=== PATIENT | female | born 1960 | race African-American/Black ===

== ENCOUNTER 2016-08-13 10:50 | Outpatient (CLI) | payer OTHER ==
[2016-08-13 11:41] LABS: eGFR (African) > 60; eGFR (Non-African) > 60
== END 2016-08-13 11:00 ==
LOC: LAB 10:50
PROVIDERS: ATTEND Family Medicine
DX: E11.9 Type 2 diabetes mellitus without complications (principal)
CPT/HCPCS: 36415; 80053; 80061; 83036

== ENCOUNTER 2017-01-02 13:57 | Outpatient (CLI) | payer OTHER ==
[2017-01-02 14:45] LABS: eGFR (African) > 60; eGFR (Non-African) > 60
[2017-01-03 05:49] LABS: BASOPHILS % 0.5 (0.0-1.5); EOSINOPHILS % 3.3 % (0.0-6.8); MEAN CORPUSCULAR HEMOGLOBIN 30.7 pg (28.0-34.0); MEAN CORPUSCULAR VOLUME 92.5 fl (80.0-100.0); MONOCYTES % 2.6 % (0.0-11.0); NEUTROPHILS # 4.2 # k/uL (1.4-7.7)
== END 2017-01-02 14:00 ==
LOC: LAB 13:57
PROVIDERS: ATTEND Family Medicine
DX: E11.9 Type 2 diabetes mellitus without complications (principal); R53.82 Chronic fatigue, unspecified
CPT/HCPCS: 36415; 80053; 83036; 84443; 85025

== ENCOUNTER 2017-02-17 07:59 | Outpatient (CLI) | payer OTHER ==
--- NOTE | 2017-02-17 18:04 | Diagnostic Imaging Report ---
Name: KRISTIE MCKENZIE ~~ ~~ : 56 ~~ Acc #: [id number]~~ DOS: Feb 17, 2017 8:06:24 AM CDT ~~ Mod: MR ~~ Desc: MRI L SPINE W/O CONTRAST 2 of 2 KEVIN SRINIVASAN~ [address] [id number] ~ ~ ~ ~ Report Submission Date: Feb 17, 2017 2:53:36 PM CDT Patient ~ Study Name: KRISTIE MCKENZIE ~ Date: Feb 17, 2017 8:06:24 AM CDT ~ Modality Type: MR Gender: F ~ Description: MRI L SPINE W/O CONTRAST : 56 ~ Institution: [facility] Physician: KEVIN SRINIVASAN ~ ~ ~ ~ Magnetic resonance imaging of the lumbar spine without contrast History: Chronic low back pain for 10 years Findings: Routine sagittal and axial images of the lumbar spine are obtained without contrast. Priors have not been provided for comparison. Chronic degenerative endplate marrow signal abnormality is present at L4/L5. The conus medullaris terminates at the L1/L2 level. A fatty replaced L4 vertebral body hemangioma is noted. A 1.6 x 1.0 cm T1 and T2 hyperintense left lower pole renal lesion is observed. A small left upper pole renal cyst is present. L1/L2: Unremarkable intervertebral disc level. L2/L3: Mild diffuse disc bulging and posterior midline annular fissure without stenosis. L3/4: Mild to moderate diffuse disc bulging, posterior midline annular fissure, mild bilateral facet arthropathy, and spinal canal narrowing without stenosis. L4/L5: Moderate disc space narrowing, moderate to marked diffuse disc bulging, mild bilateral facet arthropathy, and spinal canal narrowing without stenosis. The left neural foramen is narrowed. L5/S1: Minimal disc bulging and moderate left facet arthropathy without spinal stenosis. Impression: 1. Mild multilevel lumbar spondylosis without disc extrusion, central canal stenosis, or critical foraminal stenosis. 2. Degenerative L4/L5 marrow change and L4 vertebral body hemangioma. 3. 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 Recommend noncontrast CT for confirmation. ~ Electronically signed on Feb 17, 2017 2:53:36 PM CDT by: Mike TYLER
== END 2017-02-17 08:10 | disposition home or self-care (01) ==
LOC: RAD 07:59
PROVIDERS: ATTEND Family Medicine
DX: M54.5 Low back pain (principal)
CPT/HCPCS: 72148

== ENCOUNTER 2017-09-04 13:41 | Outpatient (CLI) | payer OTHER ==
[2017-09-04 14:40] LABS: eGFR (African) > 60; eGFR (Non-African) > 60
== END 2017-09-04 13:42 ==
LOC: LAB 13:41
PROVIDERS: ATTEND Family Medicine
DX: E11.9 Type 2 diabetes mellitus without complications (principal)
CPT/HCPCS: 36415; 80053; 80061; 83036

== ENCOUNTER 2017-11-04 07:16 | Day surgery (SDC) | payer OTHER ==
--- NOTE | 2017-11-05 10:48 | GI Report ---
REFERRING PHYSICIAN: Dr. Pavan Dan CUFF FOLDER: Jose Guadalupe Adam MD PROCEDURE MEDICATION: Propofol as per anesthesia. INDICATIONS: This 57-year-old woman is referred for a screening colonoscopy. She had 1 done about 10 years ago. She denies any bleeding. Sometimes her stools are irregular. She is a diabetic. She is on lisinopril, metformin, Januvia, and is on atorvastatin for cholesterol. Unfortunately, she is a cigarette smoker. PROCEDURE PERFORMED: Colonoscopy. PROCEDURE: An Olympus video colonoscope was advanced to the rectum and slowly advanced to the cecum. The appendiceal orifice and terminal ileum were normal. On slow withdrawal, the cecum, ascending colon, and transverse colon with no obvious intraluminal lesions noted. The descending colon and sigmoid colon had some redundancy. No obvious intraluminal lesions were noted. Retroflexion of the rectum was normal. Patient tolerated the procedure well. FINDINGS: 1. Normal appearing mucosa. 2. A little bit of irregularity . RECOMMENDATIONS: 1. Increase fiber in the diet. 2. With her metabolic syndrome, hypertension, hyperlipidemia, diabetes, being a cigarette smoker is a significant for risk for her. Patient was advised to stop tobacco usage. 3. Consider re-looking at her colon in 10 years. cc: Dr. Pavan TYLER
== END 2017-11-04 07:17 ==
LOC: OPSURG 07:16
PROVIDERS: ATTEND Internal Medicine Gastroenterology
DX: Z12.11 Encounter for screening for malignant neoplasm of colon (principal); E11.9 Type 2 diabetes mellitus without complications; I10 Essential (primary) hypertension; E78.5 Hyperlipidemia, unspecified; F17.210 Nicotine dependence, cigarettes, uncomplicated
CPT/HCPCS: J2001; J2704; J7120; G0121; S1016

== ENCOUNTER 2018-01-08 13:54 | Outpatient (CLI) | payer OTHER ==
[2018-01-08 14:36] LABS: eGFR (African) > 60; eGFR (Non-African) > 60
== END 2018-01-08 13:55 ==
LOC: LAB 13:54
PROVIDERS: ATTEND Family Medicine
DX: E11.9 Type 2 diabetes mellitus without complications (principal)
CPT/HCPCS: 36415; 80053; 83036

== ENCOUNTER 2018-01-22 14:54 | Emergency (ER) | payer OTHER ==
--- NOTE | 2018-01-22 15:23 | ED Physician Documentation ---
Female Urogenital Problems - HISTORIAN Historian: patient - HPI Stated Complaint: Urinary Frequency Chief Complaint: Female Urogenital Problems Onset: days ago Severity: severe - Associated Symptoms Urinary Symptoms: blood in urine, frequent urination, burning w/ urination, urgency w/ urination, pain w/ urination - ROS CONST: chills. denies: recent illness, fever, sweating GI/: denies: nausea, vomiting, decreased appetite, diarrhea, black stools, bloody stools, other CVS/RESP: none EYES/ENT: none NEURO/PSYCH: none MS/SKIN/LYMPH: none - PAST HX Past History: none Other History: diabetes Type 2, hypertension, other (fibromyalgia, depression) Allergies/Adverse Reactions: Allergies Allergy/AdvReac Type Severity Reaction Status Date / Time Penicillins Allergy Unknown Unverified 01/30/16 15:24 No Known Drug Allergies Allergy Unverified 05/06/14 14:28 - SOCIAL HX Smoking History: non-smoker - FAMILY HX Family History: denies: none - VITAL SIGNS Vital Signs: Vital Signs Temp Pulse Resp BP Pulse Ox 97.8 F 72 18 137/89 01/22/18 14:54 01/22/18 14:54 01/22/18 14:54 01/22/18 14:54 - REVIEWED ASSESSMENTS Nursing Assessment Reviewed: Yes Vitals Reviewed: Yes Progress - Progress Progress: Ua completed Reviewed discharge instructions with patient; questions answered. Verbalized understanding. ED Results Lab/Radiology - Orders Orders: ED Orders Category Date Time Status UA W/MICRO IF INDICATED Stat Lab 01/22/18 15:15 Ordered Female Urogenital Problems - EXAM General Appearance: mild distress EENT: eye inspection normal Respiratory: no resp. distress, breath sounds nml CVS: reg rate & rhythm, heart sounds normal, equal pulses, no murmur, no gallop , PMI nml, no JVD, no friction rub, 24 Abdomen: soft, non-tender, no organomegaly, no distention, nml bowel sounds Back: No: CVA tenderness Extremities: non-tender, normal range of motion, no evidence of injury, no edema , J, TRANSITIONS MANAGER Neuro: oriented X3, CN's nml as tested, motor nml, sensation nml, mood/affect nml Discharge Clincal Impression: UTI (urinary tract infection) Qualifiers: Urinary tract infection type: acute cystitis Hematuria presence: with hematuria Qualified Code(s): N30.01 - Acute cystitis with hematuria Additional Instructions: supervisor show operations your prescription and start it today Drink at least 64 oz of water daily. Avoid caffeinated beverages Cranberry juice will help with symptoms. Tylenol every 4 hours as needed for pain/fever or ibuprofen every 6 hours as needed for pain and fever See your primary care provider for a repeat UA 48 hours after completing your antibiotic. Condition: Stable Disposition: 01 HOME, SELF-CARE Decision to Admit: NO Decision Time: 15:23
[2018-01-22 15:33] VITALS: BP 132/58
[2018-01-22 15:53] LABS: APPEARANCE,URINE CLOUDY (CLEAR); COLOR,URINE YELLOW (YELLOW); OCCULT BLOOD,URINE 3+ (NEGATIVE); UROBILINOGEN URINE 0.2 Eu (0.2-1.0)
== END 2018-01-22 15:30 | disposition home or self-care (01) ==
LOC: ED 14:54
DX: N30.01 Acute cystitis with hematuria (principal)
CPT/HCPCS: 81002; 87086; 87186

== ENCOUNTER 2019-03-30 10:03 | Outpatient (CLI) | payer OTHER ==
[2019-03-30 10:47] LABS: eGFR (Non-African) > 60
== END 2019-03-30 10:05 ==
LOC: LAB 10:03
PROVIDERS: ATTEND Family Medicine
DX: E11.9 Type 2 diabetes mellitus without complications (principal)
CPT/HCPCS: 36415; 80053; 83036

== ENCOUNTER 2019-06-30 13:08 | Outpatient (CLI) | payer OTHER ==
--- NOTE | 2019-07-31 08:28 | CONSULTATION REPORT ---
DATE OF VISIT: 06/30/2019 CHIEF COMPLAINT: 1. Neck pain. 2. Low back pain. HISTORY OF PRESENT ILLNESS: Ms. Payton is a 59-year-old female patient here for initial consultation for neck pain and low back pain. The patient tells me that she has had neck pain for approximately the last 10 years that has been progressive in nature. She describes her pain as constant aching, sharp, shooting, and throbbing at times. She does have radiation to bilateral periscapular areas. She complains of numbness and tingling in the same distribution. She denies any upper extremity weakness. She does complain of some muscle twitching/jerking occasionally in her arms. Her pain is worse with standing, walking or sitting too long. Her pain is improved with pain medications, Vicks VapoRub on hands at night. The patient has tried one injection in 2007 that sounds like an epidural steroid injection. She tells me that this improved her neck pain for a short while. She continues to do a home exercise program without significant improvement in her pain symptoms. She has not participated in healthcare or medical. She has had low back pain for the last five to six years. The pain is constant, aching, sharp shooting, and throbbing at times. She does have bilateral lower extremity radiation posteriorly down to the bottom of her feet. She also has numbness and tingling in the same distribution. Of note, she does have diabetic peripheral neuropathy as well. She denies any lower extremity weakness. She denies any urinary incontinence, bowel incontinence, or saddle anesthesia. Her pain is worse with standing, walking or sitting too long, it is improved with rest and repositioning. She has not had any injections in her low back. She does continue to do a home exercise program for her low back. The patient was seen by pain management clinic approximately five to six years ago, however, does not attend pain management at present. PAST MEDICAL HISTORY: Includes diabetes type 2, peripheral neuropathy, scoliosis, arthritis, back pain, anxiety, depression, fibromyalgia, hypertension, hyperlipidemia. PAST SURGICAL HISTORY: The patient has only had a colonoscopy. FAMILY HISTORY: Mother had diabetes, hypertension, hyperlipidemia. Father diabetes, hypertension, NE, hyperlipidemia. Two siblings with diabetes and hyperlipidemia. SOCIAL HISTORY: Marital status is single. Tobacco use is current one pack per day x 32 years. ETOH, the patient denies. Recreational drugs, the patient denies. DRUG ALLERGIES: Morphine. CURRENT MEDICATIONS: 1. Januvia 50 mg per day. 2. Lyrica 50 mg b.i.d. 3. Sertraline 50 mg q day. 4. Atorvastatin 20 mg q day. 5. Lisinopril 5 mg q day. 6. Latanoprost 0.005% drops, one drop both eyes q day. 7. Metformin 1000 mg p.o. b.i.d. REVIEW OF SYSTEMS: A complete 14-point review of systems was completed. Constitutional: Positive for fatigue/weakness and decreased appetite. Eyes: Positive for flashing spots/lights, glasses. Neurologic: Positive for dizziness, arm/leg weakness, memory loss. Psychiatric: Positive for anxiety/depression. Musculoskeletal is positive for neck pain, low back pain, joint pain and muscle spasms. PHYSICAL EXAMINATION: General: This is a well-developed, well-nourished female patient presenting in no acute distress at the time of examination. Vital Signs: Temperature is 98.3, pulse is 75, respiratory rate 16, blood pressure 148/104, SaO2 98% on room air. The patient is 5 feet 4 inches tall, weighs 133 pounds. She is rating her pain 5/10 today. Psych: She is alert and oriented x3. She is calm, pleasant and cooperative. HEENT: She is normocephalic and atraumatic. Pupils are equal and round without miosis. Sclerae clear. Trachea is midline. No lymphadenopathy or thyromegaly. CV: Normal S1, S2. Regular rate and rhythm. No murmurs, gallops, or rubs. Pulmonary: Nonlabored respirations at rest. Clear to auscultation throughout, slightly diminished in posterior bases. GI: Abdomen is soft, nondistended and nontender with bowel sounds present in all four quadrants. Musculoskeletal: The patient has tenderness to palpation throughout the cervical spine, facet joints and cervical paraspinals. She has slightly limited range of motion in the cervical spine. Upper extremity strength is equal and strong. All areas graded 5/5 bilaterally in elbow flexion, elbow extension, wrist flexion, wrist extension, finger abduction and finger adduction. Tapper Balance Wheel Screw Hole are equal and strong bilaterally as well. Upper extremity deep tendon reflexes are graded 2+. Sensation to light touch is intact bilateral upper extremities. On Spurling's the patient has positive axial pain only in the neck, no radicular pain. The patient is tender to palpation throughout the lower lumbar spinous processes, facets and paraspinals. Trunk range of motion is full in extension and flexion. Bilateral Frias's is positive for axial low back pain only, no radicular pain. Bilateral lower extremity strength is graded 5/5 in hip flexion, knee extension, knee flexion, dorsiflexion and plantar flexion. Bilateral lower extremity deep tendon reflexes are graded 2+. Sensation is intact to light touch bilateral lower extremities. Neurologic: Cranial nerves II through XII are grossly intact. The patient walks with a slightly antalgic gait. ASSESSMENT: 1. Cervicalgia. 2. Cervical radiculitis versus radiculopathy. 3. Lumbago. 4. Lumbar radiculitis versus radiculopathy. PLAN: 1. Today I have ordered cervical x-ray series to include flexion/extension and odontoid. 2. I have also ordered lumbar x-ray series to include flexion/extension and oblique. 3. AP pelvis x-ray was also ordered. 4. I have prescribed the patient meloxicam 7.5 mg one p.o. b.i.d., dispense #60 with no refills. The patient was advised to take this with food and to stop for GI upset. I also prescribed tizanidine 4 mg one p.o. q.h.s., dispense #30 with no refills. 5. The patient is to continue a home exercise program and I have given her handouts to add to her current regimen for her low back and neck pain. 6. The patient is to follow up in one month or sooner to review imaging. 7. I will consider this patient for evaluation for manipulation under anesthesia. The patient verbalizes understanding and agrees to the current treatment plan. Malissa Calvin NP Nurse Practitioner /[employer] [id number] jrd cc: MD JAYSON Marshall
== END 2019-06-30 14:08 ==
LOC: OUT 13:08
PROVIDERS: ATTEND Nurse Practitioner Adult Health
DX: M54.2 Cervicalgia (principal); M54.5 Low back pain
CPT/HCPCS: 99214; G0463